=== PATIENT | male | born 1995 | race Caucasian/White ===

== ENCOUNTER 2023-10-19 10:47 | Emergency (ER) | payer OTHER, SELFPAY ==
--- NOTE | ~2023-10-19 | XR_ITS ---
EXAMINATION: XR chest 2V DATE: 10/19/2023 11:25 INDICATION: Left-sided chest pain TECHNIQUE: PA and lateral views of the chest were obtained. COMPARISON: None FINDINGS: The lungs are clear with no focal airspace opacities, pulmonary edema, pleural effusion or pneumothor ax. The cardiomediastinal silhouette is normal. Visualized bones and soft tissues are unremarkable. IMPRESSION: 1. No acute cardiopulmonary disease. Reviewed, dictated and finalized at location A. [employer] TECH[employer]IAN
[2023-10-19 10:49] VITALS: BP 133/88; PULSE 79; RESP 16; TEMP 36.1; O2SAT 100
--- NOTE | 2023-10-19 10:53 | ECG_ITS ---
Measurements Intervals [place] Rate: 79 P: 72 MS: 138 QRS: 73 QRSD: 85 T: 58 QT: 330 QTc: 379 Interpretive Statements SINUS RHYTHM NORMAL ECG NO PREVIOUS ECG AVAILABLE FOR COMPARISON Electronically Signed On 10-19-2023 18:28:32 MANAGER CONFIGURATION by Gilberto García M.D.
[2023-10-19 11:20] LABS: Basophils Percent Auto 0.8 % (0.2-1.2); Eosinophils Absolute Auto 0.5 K/mm3 (0-0.3); Eosinophils Percent Auto 8.6 % (0-4.4); Hematocrit 44.9 % (42.0-52.0); Hemoglobin 15.2 g/dL (14.0-18.0); Immature Granulocyte Absolute 0.01 K/mm3 (0.00-0.031); Immature Granulocyte Percent A 0.2 % (0-0.5); Lymphocytes Absolute Auto 1.78 K/mm3 (0.9-3.2); Lymphocytes Percent Auto 33.8 % (18.3-44.2); Mean Corpuscular HGB Conc 33.9 g/dl (32-36); Mean Corpuscular Hemoglobin 31.9 pg (26-34); Mean Corpuscular Volume 94.1 fl (80-100); Mean Platelet Volume 9.3 fl (7.4-10.4); Monocytes Absolute Auto 0.4 K/mm3 (0.1-0.6); Monocytes Percent Auto 7.8 % (2.6-8.5); Neutrophils Absolute Auto 2.6 K/mm3 (1.3-6.7); Neutrophils Percent Auto 48.8 % (45.5-73.1); Platelet Count Result 341 k/mm3 (150-375); Red Blood Count 4.77 M/mm3 (4.6-6.20); Red Cell Distribution Width 11.7 % (11.5-14.5); White Blood Count 5.3 K/mm3 (4.5-10.0)
[2023-10-19 11:27] LABS: Alanine Aminotransferase 17 U/L (6-50); Albumin Level 4.7 g/dL (3.5-5.1); Alkaline Phosphatase 55 U/L (38-126); Anion Gap 7 mmol/L (8-16); Aspartate Amino Transferase 32 U/L (17-59); Bilirubin,Total 0.8 mg/dL (0.2-1.3); Blood Urea Nitrogen 12 mg/dL (9-20); Calcium 9.3 mg/dL (8.4-10.2); Carbon Dioxide 28 mmol/L (22-30); Chloride 103 mmol/L (98-107); Estimated CRCL calculation 100 ml/min; Estimated Glomerular Filt Rate > 60; Glucose 100 mg/dL (65-110); INR 0.9; Lipase 96 U/L (23-300); Partial Thromboplastin Time 25.9 SECONDS (22.3-36.8); Potassium 3.6 mmol/L (3.4-5.0); Prothrombin Time 13.1 Seconds (11.1-14.7); Sodium 138 mmol/L (137-145)
[2023-10-19 11:39] LABS: Troponin I < 0.012 ng/mL (0.000-0.034)
[2023-10-19 12:26] VITALS: BP 140/82; PULSE 82; RESP 16; O2SAT 100
[2023-10-19] MEDS: KETOROLAC 30 MG/ML VIAL (*BKC) IV PUSH (13:39)
[2023-10-19 13:42] VITALS: PULSE 64
[2023-10-19 14:20] VITALS: BP 112/84; PULSE 72; RESP 15; O2SAT 100
[2023-10-19 16:14] VITALS: BP 110/71; PULSE 73; RESP 16; O2SAT 98
--- NOTE | 2023-10-19 17:39 | ED.CHESTPAIN ---
HPI - Chest Pain General Chief Complaint: Chest Pain Stated Complaint: chest pain Time Seen by Provider: 10/19/23 12:25 History of Present Illness HPI narrative: Patient is a 28-year-old male who presents ER with pain to left side of his chest. Worsening over last week. Notices it more when he takes a deep breath. No exertional dyspnea. No hemoptysis. No Raynaud's or sore throat or productive cough. Denies trauma. No lower extremity swelling or cramping. No long distance travel recent surgery. patient has not tried any pain medication does he does not pills. He was referred here from urgent care. Related Data Allergies Allergy/AdvReac Type Severity Reaction Status Date / Time No Known Allergies Allergy Mild Verified 10/19/23 12:25 Review of Systems Review of Systems: All systems reviewed & are unremarkable except as noted in HPI and below Constitutional: Constitutional: Reports no additional constitutional complaints ENT: Reports system reviewed and no additional complaints, except as documented Cardiovascular: Cardiovascular: Reports chest pain, Denies rapid heart rate and Denies radiating jaw, neck or arm pain Respiratory: Respiratory: Denies chest congestion, Denies cough, Denies dyspnea and Denies wheezing Gastrointestinal: Gastrointestinal: Reports no additional gastrointestinal complaints Musculoskeletal: Musculoskeletal: Reports no additional musculoskeletal complaints Neurologic: Reports system reviewed and no additional complaints, except as documented PMFSH Past Medical History Medical History (Updated 10/19/23 @ 17:50 by Jose Salinas MD) Healthy adult male Surgical History Surgical History (Updated 10/19/23 @ 17:50 by Jose Salinas MD) No history of previous surgery Family History Family History (Updated 12/05/16 @ 23:56 by DOCTOR UNKNOWN) Grandparent Hypertension Family history of type 2 diabetes mellitus, Onset Age: 68 Social History Social History Smoking status: Never smoker Exam Narrative: GENERAL: Well-appearing, well-nourished, and in no acute distress. HEAD: Normocephalic, atraumatic. ENT: Mucous membranes moist. CHEST: Clear to auscultation. No respiratory distress. HEART: Regular rate and rhythm. Normal peripheral pulses. ABDOMEN: Soft, nontender, nondistended. EXTREMITIES: Normal range of motion. No edema. SKIN: Warm, dry, no rash. NEURO: Alert and oriented x3. PSYCH: Normal mood and affect. Course Course Emergency Course: Pain resolved with Toradol. Perc 0. Lab/imaging/EKG reassuring. Discharge home. Recommend follow-up with PCP and scheduled anti-inflammatories for home. Vital Signs Vital signs: Vital Signs Temperature 97.0 F L 10/19/23 10:49 Pulse Rate 79 10/19/23 10:49 Respiratory Rate 16 10/19/23 10:49 Blood Pressure 133/88 10/19/23 10:49 Pulse Oximetry 100 10/19/23 10:49 Oxygen Delivery Room Air 10/19/23 10:49 Temperature 97.0 F L 10/19/23 10:49 Pulse Rate 73 10/19/23 16:14 Respiratory Rate 16 10/19/23 16:14 Blood Pressure 110/71 10/19/23 16:14 Pulse Oximetry 98 10/19/23 16:14 Oxygen Delivery Room Air 10/19/23 10:49 MDM - Chest Pain Lab Data 10/19/23 11:06 10/19/23 11:06 Labs: Lab Results 10/19/23 Range/Units 11:06 WBC 5.3 (4.5-10.0) K/mm3 RBC 4.77 (4.6-6.20) M/mm3 Hgb 15.2 (14.0-18.0) g/dL Hct 44.9 (42.0-52.0) % MCV 94.1 (80-100) fl MCH 31.9 (26-34) pg MCHC 33.9 (32-36) g/dl RDW 11.7 (11.5-14.5) % Plt Count 341 (150-375) k/mm3 MPV 9.3 (7.4-10.4) fl Immature Gran % (Auto) 0.2 (0-0.5) % Neut % (Auto) 48.8 (45.5-73.1) % Lymph % (Auto) 33.8 (18.3-44.2) % [place] % (Auto) 7.8 (2.6-8.5) % Eos % (Auto) 8.6 H (0-4.4) % Baso % (Auto) 0.8 (0.2-1.2) % Lymph # (Auto) 1.78 (0.9-3.2) K/mm3 [place] # (Auto) 0.4 (0.1-0.6) K/mm3 Eos # (Auto) 0.5 H (0-0.3) K/mm3 Baso # (A
[2023-10-19 17:49] VITALS: BP 142/84; PULSE 80; RESP 16; O2SAT 99
== END 2023-10-19 17:50 | disposition home or self-care (01) ==
PROVIDERS: Emergency Provider Emergency Medicine
DX: R09.1 Pleurisy (principal); R07.89 Other chest pain
CPT/HCPCS: 36415; 71046; 80053; 83690; 84484; 85025; 85610; 85730; 93005; 96374; 99284; J1885